=== PATIENT | male | born 1980 | race Caucasian/White ===

== ENCOUNTER 2020-03-03 11:20 | Emergency (ER) | payer SELFPAY ==
[~2020-03-03] VITALS: Ht 180.3 cm; Wt 102.1 kg
[2020-03-03 11:27] VITALS: Ht 180.3 cm; Wt 102.1 kg
[2020-03-03 12:43] VITALS: BP 138/83
== END 2020-03-03 12:43 | disposition other institution (70) ==
LOC: ED 11:20
DX: S92.001A Unspecified fracture of right calcaneus, initial encounter for closed fracture (principal); F15.10 Other stimulant abuse, uncomplicated; W17.89XA Other fall from one level to another, initial encounter; Y93.39 Activity, other involving climbing, rappelling and jumping off; Y92.89 Other specified places as the place of occurrence of the external cause; Y99.8 Other external cause status
CPT/HCPCS: 82962; Q0092

== ENCOUNTER 2020-03-03 11:20 | Emergency (ER) | payer OTHER | END 2020-03-03 12:43 | disposition other institution (70) | LOC: ED 11:20 | DX: Z02.89 Encounter for other administrative examinations (principal) ==